=== PATIENT | male | born 1940 | race Hispanic/Latino ===

== ENCOUNTER → 2019-12-19 | Outpatient (CLI) | payer OTHER ==
[~2019-12-19] MED LIST: CHOL200074 PO; DEXL60CA3 PO; PRAV80TA21 PO; SUPER BETA PROSTATE PO; fluticasone NASAL
== END | disposition home or self-care (01) ==
LOC: SHCH 08:28
PROVIDERS: ATTEND Internal Medicine Cardiovascular Disease
DX: I25.2 Old myocardial infarction (principal)
CPT/HCPCS: 93306; 93356